=== PATIENT | male | born 1985 | race American Indian/Alaskan Native ===

== ENCOUNTER 2019-06-21 12:12 | Emergency (ER) | payer SELFPAY ==
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
--- NOTE | 2019-06-21 13:22 | XRay Report ---
CHEST 2 VIEWS INDICATION / CLINICAL INFORMATION: sob,cough and rales. COMPARISON: None available. FINDINGS: SUPPORT DEVICES: None. HEART / MEDIASTINUM: No significant abnormality. LUNGS / PLEURA: No significant pulmonary or pleural abnormality. No pneumothorax. ADDITIONAL FINDINGS: No significant additional findings. IMPRESSION: 1. No significant abnormality. Signer Name: Tiffany Askew MD Signed: 06/21/2019 1:18 PM Workstation Name: [id number]
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
[2019-06-21] MEDS ORDERED: NAPROXEN 500 MG TAB PO ONE (16:00)
[2019-06-21 16:20] VITALS: BP 130/90
== END 2019-06-21 16:20 | disposition home or self-care (01) ==
LOC: ED 12:12
DX: S90.32XA Contusion of left foot, initial encounter (principal); F17.200 Nicotine dependence, unspecified, uncomplicated; R07.89 Other chest pain; V89.2XXA Person injured in unspecified motor-vehicle accident, traffic, initial encounter; Y93.89 Activity, other specified; Y92.410 Unspecified street and highway as the place of occurrence of the external cause; Y99.8 Other external cause status
CPT/HCPCS: 71046